=== PATIENT | male | born 1960 | race Caucasian/White ===

== ENCOUNTER 2018-11-10 16:57 | Inpatient (IN) | payer MEDICAID ==
[2018-11-10 17:19] LABS: ADD MAN DIFF? NO
[2018-11-10] MEDS: ASPIRIN 81 MG TAB PO (17:22)
[2018-11-10 17:23] LABS: WHITE BLOOD COUNT 8.3 10^3/ul (4.8-10.8)
[2018-11-10 17:23] LABS: BASOPHILS % 0.4 % (0.0-2.0); EOSINOPHILS # 0.6 10^3/ul (0.0-0.5); EOSINOPHILS % 6.6 % (0.0-7.0); HEMATOCRIT 45.1 % (42.0-52.0); HEMOGLOBIN 14.8 g/dl (14.0-18.0); LYMPHOCYTES # 3.6 10^3/ul (0.8-2.9); LYMPHOCYTES % 43.4 % (15.0-51.0); MEAN CORPUSCULAR HGB CONC 32.8 g/dl (32.0-37.0); MEAN CORPUSCULAR VOLUME 94.4 fl (82.0-101.0); MEAN PLATELET VOLUME 11.8 fl (7.4-10.4); MONOCYTE # 0.6 10^3/ul (0.3-0.9); MONOCYTES % 7.7 % (0.0-11.0); NEUTROPHIL # 3.5 10^3/ul (1.6-7.5); NEUTROPHILS % 41.7 % (39.0-77.0); PLATELET COUNT 252 10^3/UL (140-415); RED BLOOD COUNT 4.78 10^6/ul (4.70-6.10); RED CELL DISTRIBUTION WIDTH 12.5 % (11.5-14.5)
[2018-11-10] MEDS: NITROGLYCERIN 2% 1 GM OINT PKT TD (17:23)
[2018-11-10] MEDS ORDERED: NITROGLYCERIN (SL) 0.4 MG TAB SL ×2 (17:30→19:00)
[2018-11-10 17:40] LABS: ANION GAP 8 (5-13); BLOOD UREA NITROGEN 16 mg/dl (7-20); CALCIUM 9.3 mg/dl (8.4-10.2); CARBON DIOXIDE 29 mmol/L (21-31); CHLORIDE 106 mmol/L (97-110); CREATININE 1.24 mg/dl (0.61-1.24); Estimated GFR > 60 mL/min (>60); GLUCOSE 103 mg/dl (70-220); POTASSIUM 4.6 mmol/L (3.5-5.1); SODIUM 143 mmol/L (135-144)
[2018-11-10 17:52] LABS: TROPONIN-I < 0.012 ng/ml (0.000-0.120)
[2018-11-10] MEDS ORDERED: ONDANSETRON 4 MG INJ IV (18:30)
[2018-11-10] MEDS ORDERED: ACETAMINOPHEN 325 MG TAB PO ×2 (18:30→19:00)
[2018-11-10] MEDS ORDERED: MAGNESIUM HYDROXIDE 30ML CUP PO (19:00)
[2018-11-10] MEDS ORDERED: DOCUSATE SODIUM 100 MG CAP PO (19:00)
[2018-11-10] MEDS ORDERED: NACL 0.9% 3 ML SYG IV (19:00)
[2018-11-10 19:03] LABS: HEMOGLOBIN A1C 6.1 % (0-5.9)
[2018-11-10] MEDS: IOHEXOL 300MG/ML 150 ML BTL (19:44)
[2018-11-10] MEDS: SOD CHLORIDE 0.9% 100 ML (19:44)
[2018-11-10] MEDS: SALINE 0.65% 45 ML NAS SPRAY NASAL (21:00)
[2018-11-10] MEDS: ONDANSETRON 4 MG INJ IV (21:02)
[2018-11-10] MEDS: SOD CHLORIDE 0.9% 1,000 ML IV (21:02)
[2018-11-10] MEDS: morphine 2 MG INJ IV (21:02)
[2018-11-10 23:18] LABS: CREATINE KINASE 58 IU/L (23-200)
[2018-11-10 23:31] LABS: CK INDEX 0.7; CK-MB 0.41 ng/ml (0.0-2.4); TROPONIN-I < 0.012 ng/ml (0.000-0.120)
[2018-11-11] MEDS: morphine 2 MG INJ IV (03:13)
[2018-11-11] MEDS: PANTOPRAZOLE (EC) 40 MG TAB PO (05:15)
[2018-11-11 06:08] LABS: ADD MAN DIFF? NO
[2018-11-11 06:24] LABS: BASOPHILS % 0.4 % (0.0-2.0); EOSINOPHILS # 0.4 10^3/ul (0.0-0.5); EOSINOPHILS % 5.6 % (0.0-7.0); HEMATOCRIT 40.1 % (42.0-52.0); LYMPHOCYTES # 2.8 10^3/ul (0.8-2.9); MEAN CORPUSCULAR HGB CONC 32.4 g/dl (32.0-37.0); MEAN CORPUSCULAR VOLUME 95.7 fl (82.0-101.0); MEAN PLATELET VOLUME 12.1 fl (7.4-10.4); MONOCYTE # 0.7 10^3/ul (0.3-0.9); MONOCYTES % 8.8 % (0.0-11.0); NEUTROPHIL # 3.9 10^3/ul (1.6-7.5); NEUTROPHILS % 48.8 % (39.0-77.0); PLATELET COUNT 218 10^3/UL (140-415); RED BLOOD COUNT 4.19 10^6/ul (4.70-6.10); RED CELL DISTRIBUTION WIDTH 12.6 % (11.5-14.5)
[2018-11-11 06:24] LABS: WHITE BLOOD COUNT 7.9 10^3/ul (4.8-10.8)
[2018-11-11 06:39] LABS: ANION GAP 6 (5-13); BLOOD UREA NITROGEN 20 mg/dl (7-20); CALCIUM 8.8 mg/dl (8.4-10.2); CARBON DIOXIDE 28 mmol/L (21-31); CHLORIDE 108 mmol/L (97-110); CHOL/HDL RATIO 4.8 RATIO; CHOLESTEROL 168 mg/dl (100-200); CREATININE 1.06 mg/dl (0.61-1.24); Estimated GFR > 60 mL/min (>60); GLUCOSE 96 mg/dl (70-220); HDL CHOLESTEROL 35 mg/dl (28-71); LDL CHOLESTEROL,CALCULATED 111 mg/dl; MAGNESIUM 2.2 mg/dl (1.7-2.5); POTASSIUM 4.6 mmol/L (3.5-5.1); SODIUM 142 mmol/L (135-144); TRIGLYCERIDES 112 mg/dl (0-149)
[2018-11-11 06:52] LABS: CK-MB 0.41 ng/ml (0.0-2.4); TROPONIN-I < 0.012 ng/ml (0.000-0.120)
[2018-11-11 06:58] LABS: CK INDEX 0.7; CREATINE KINASE 57 IU/L (23-200)
[2018-11-11] MEDS: SALINE 0.65% 45 ML NAS SPRAY NASAL ×2 (09:00→20:42)
[2018-11-11] MEDS: ASPIRIN 81 MG TAB PO (09:11)
[2018-11-11] MEDS: ENOXAPARIN 30 MG/0.3 ML SYG SC (09:32)
[2018-11-11] MEDS: HYDROCODONE/APAP (5/325) TAB PO (12:14)
[2018-11-11 13:47] LABS: ADD UMIC NO; UR ASCORBIC ACID NEGATIVE (NEGATIVE); UR BILIRUBIN (Dip) NEGATIVE (NEGATIVE); UR BLOOD (Dip) NEGATIVE (NEGATIVE); UR CLARITY CLEAR (CLEAR); UR COLOR YELLOW (YELLOW); UR GLUCOSE (Dip) NEGATIVE (NEGATIVE); UR KETONES (Dip) NEGATIVE (NEGATIVE); UR LEUKOCYTE ESTERASE (Dip) NEGATIVE Leu/ul (NEGATIVE); UR NITRITE (Dip) NEGATIVE (NEGATIVE); UR SPECIFIC GRAVITY (Dip) 1.023 (1.003-1.030); UR TOTAL PROTEIN (Dip) NEGATIVE (NEGATIVE); UR UROBILINOGEN (Dip) NEGATIVE (NEGATIVE)
[2018-11-12 05:10] LABS: ADD MAN DIFF? NO
[2018-11-12 05:15] LABS: BASOPHILS % 0.3 % (0.0-2.0); EOSINOPHILS # 0.4 10^3/ul (0.0-0.5); EOSINOPHILS % 5.8 % (0.0-7.0); HEMATOCRIT 42.4 % (42.0-52.0); LYMPHOCYTES # 2.7 10^3/ul (0.8-2.9); LYMPHOCYTES % 42.3 % (15.0-51.0); MEAN PLATELET VOLUME 11.9 fl (7.4-10.4); MONOCYTE # 0.6 10^3/ul (0.3-0.9); MONOCYTES % 8.7 % (0.0-11.0); NEUTROPHIL # 2.8 10^3/ul (1.6-7.5); NEUTROPHILS % 42.7 % (39.0-77.0); PLATELET COUNT 223 10^3/UL (140-415); RED BLOOD COUNT 4.51 10^6/ul (4.70-6.10); RED CELL DISTRIBUTION WIDTH 12.6 % (11.5-14.5)
[2018-11-12 05:15] LABS: WHITE BLOOD COUNT 6.4 10^3/ul (4.8-10.8)
[2018-11-12] MEDS: PANTOPRAZOLE (EC) 40 MG TAB PO (05:51)
[2018-11-12 06:24] LABS: TROPONIN-I < 0.012 ng/ml (0.000-0.120)
[2018-11-12 06:42] LABS: ALBUMIN 3.8 g/dl (3.3-4.9); ANION GAP 7 (5-13); BLOOD UREA NITROGEN 18 mg/dl (7-20); CALCIUM 9.1 mg/dl (8.4-10.2); CARBON DIOXIDE 28 mmol/L (21-31); CHLORIDE 107 mmol/L (97-110); CREATININE 1.03 mg/dl (0.61-1.24); GLUCOSE 104 mg/dl (70-220); MAGNESIUM 2.1 mg/dl (1.7-2.5); PHOSPHORUS 3.8 mg/dl (2.5-4.9); POTASSIUM 4.9 mmol/L (3.5-5.1); SODIUM 142 mmol/L (135-144)
[2018-11-12] MEDS: ASPIRIN 81 MG TAB PO (09:17)
[2018-11-12] MEDS: SALINE 0.65% 45 ML NAS SPRAY NASAL ×2 (09:17→20:25)
[2018-11-12] MEDS: ENOXAPARIN 30 MG/0.3 ML SYG SC (09:44)
[2018-11-12] MEDS: REGADENOSON 0.4 MG/5 ML SYG (11:12)
[2018-11-12] MEDS: HYDROCODONE/APAP (5/325) TAB PO (17:49)
[2018-11-12] MEDS: ATORVASTATIN 20 MG TAB PO (20:24)
[2018-11-13] MEDS: PANTOPRAZOLE (EC) 40 MG TAB PO (05:18)
[2018-11-13 05:39] LABS: ADD MAN DIFF? NO
[2018-11-13 05:43] LABS: BASOPHILS % 0.3 % (0.0-2.0); EOSINOPHILS # 0.4 10^3/ul (0.0-0.5); EOSINOPHILS % 5.5 % (0.0-7.0); HEMATOCRIT 45.1 % (42.0-52.0); HEMOGLOBIN 14.7 g/dl (14.0-18.0); LYMPHOCYTES # 2.8 10^3/ul (0.8-2.9); LYMPHOCYTES % 40.4 % (15.0-51.0); MEAN CORPUSCULAR HEMOGLOBIN 30.7 pg (29.0-33.0); MEAN CORPUSCULAR HGB CONC 32.6 g/dl (32.0-37.0); MEAN CORPUSCULAR VOLUME 94.2 fl (82.0-101.0); MEAN PLATELET VOLUME 11.5 fl (7.4-10.4); MONOCYTE # 0.5 10^3/ul (0.3-0.9); MONOCYTES % 7.8 % (0.0-11.0); NEUTROPHIL # 3.2 10^3/ul (1.6-7.5); NEUTROPHILS % 45.7 % (39.0-77.0); PLATELET COUNT 225 10^3/UL (140-415); RED BLOOD COUNT 4.79 10^6/ul (4.70-6.10); RED CELL DISTRIBUTION WIDTH 12.6 % (11.5-14.5)
[2018-11-13 06:15] LABS: PHOSPHORUS 3.8 mg/dl (2.5-4.9)
[2018-11-13 06:15] LABS: MAGNESIUM 2.1 mg/dl (1.7-2.5)
[2018-11-13 06:16] LABS: ANION GAP 6 (5-13); BLOOD UREA NITROGEN 18 mg/dl (7-20); CALCIUM 9.4 mg/dl (8.4-10.2); CARBON DIOXIDE 29 mmol/L (21-31); CHLORIDE 106 mmol/L (97-110); CREATININE 1.01 mg/dl (0.61-1.24); Estimated GFR > 60 mL/min (>60); GLUCOSE 107 mg/dl (70-220); POTASSIUM 5.1 mmol/L (3.5-5.1); SODIUM 141 mmol/L (135-144)
[2018-11-13] MEDS: ASPIRIN 81 MG TAB PO (07:37)
[2018-11-13] MEDS: SALINE 0.65% 45 ML NAS SPRAY NASAL (07:37)
[2018-11-13] MEDS: ENOXAPARIN 30 MG/0.3 ML SYG SC (08:20)
== END 2018-11-13 11:24 | disposition home or self-care (01) | DRG 313 ==
LOC: E/R 16:57 → 6WM 11-11 19:29
PROVIDERS: Internal Medicine
DX: R07.89 Other chest pain (principal); I25.10 Atherosclerotic heart disease of native coronary artery without angina pectoris; E78.5 Hyperlipidemia, unspecified; R42 Dizziness and giddiness; R09.81 Nasal congestion; M79.18 Myalgia, other site; R00.1 Bradycardia, unspecified; R26.0 Ataxic gait; R73.03 Prediabetes; J32.9 Chronic sinusitis, unspecified; I25.2 Old myocardial infarction; Z79.82 Long term (current) use of aspirin
CPT/HCPCS: 36415; 70460; 70545; 70552; 71045; 78452; 80048; 80061; 80069; 81003; 82550; 82553; 83036; 83735; 84100; 84443; 84484; 85025; 93005; 93017; 93306; 99285-25; G0378